=== PATIENT | male | born 1955 | race Caucasian/White ===

== ENCOUNTER 2021-06-13 10:43 | Inpatient (IN) | payer MEDICARE, OTHER ==
[~2021-06-13] VITALS: Ht 170.8 cm; Wt 88.6 kg
[2021-06-13] MEDS ORDERED: cefTRIAXone 1 GM PRE-MIX 50 ML IV STA (10:56)
[2021-06-13] MEDS ORDERED: methylPREDNISolone 125 MG (Solu-MEDROL) VIAL IM ONE (11:00)
[2021-06-13] MEDS ORDERED: RT-ALBUTEROL/IPRATROPIUM 3 ML (DUONEB) VIAL INH ONE (11:00)
[2021-06-13] MEDS ORDERED: NS IV 1000 ML 1,000 ML IV SCH ×2 (11:00→12:45)
--- NOTE | 2021-06-13 11:02 | ED Dyspnea ---
General Stated Complaint: SOB Source of Information: Patient Exam Limitations: No Limitations History of Present Illness Date Seen by Provider: Jun 13, 2021 Time Seen by Provider: 11:10 Initial Comments Patient is a 65-year-old male who presents ED with shortness of breath and cough. Symptoms started since first part of this month. Reports worsening coug h with clear sputum production. Shortness of breath. Patient oxygen level on arrival 89 to 90% on room air. Was placed on 2 L. Denies history of COPD. History of smoking. Denies history of CHF, coronary artery disease. Mild chest pressure with body aches and fatigue and weakness. Has received his Covid vaccine, influenza vaccine, and pneumococcal vaccine. Patient denies any vomiting or diarrhea. Denies of any abdominal pain, headache, dizziness, sore throat, ear pain or change in urination. [facility] is [facility] being [facility] Allergies and Home Medications Allergies Coded Allergies: No Known Drug Allergies (Unverified , 06/13/21) Patient Home Medication List Home Medication List Reviewed: Yes Alprazolam (Alprazolam) 0.5 Mg Tablet, 0.5 MG PO BID PRN for ANXIETY, (Reported) Entered as Reported by: EV ALVES on 06/13/211546 Last Action: Reviewed Multivit-Min/FA/Lycopene/Lut (Centrum Silver Tablet) 1 Each Tablet, 1 EACH PO DAILY, (Reported) Entered as Reported by: EV ALVES on 06/13/211546 Last Action: Reviewed Simvastatin (Simvastatin) 20 Mg Tablet, 10 MG PO HS, (Reported) Entered as Reported by: EV ALVES on 06/13/211546 Last Action: Reviewed Review of Systems Review of Systems Constitutional: chills, malaise, weakness EENTM: No ear discharge, No hearing loss, No ear pain, No eye pain Respiratory: cough, dyspnea on exertion, short of breath Cardiovascular: chest pain Gastrointestinal: No abdominal pain, No constipation, No diarrhea, No vomiting Genitourinary: No dysuria, No frequency Musculoskeletal: No back pain, No joint pain Skin: No change in color All Other Systems Reviewed Negative Unless Noted: Yes Physical Exam Vital Signs Vital Signs - First Documented 06/13/21 06/13/21 10:49 11:19 Temp 38.9 Pulse 125 Resp 20 B/P (MAP) 149/100 (116) Pulse Ox 88 O2 Delivery Room Air O2 Flow Rate 4.00 Capillary Refill : Height, Weight, BMI Height: '" Weight: lbs. oz. kg; BMI Method: General Appearance: No Apparent Distress, WD/WN HEENT: PERRL/EOMI, TMs Normal, Normal ENT Inspection, Pharynx Normal Neck: Full Range of Motion, Normal Inspection, Non Tender Respiratory: Chest Non Tender, Crackles, Wheezing Cardiovascular: No Edema, No Gallop, Tachycardia Gastrointestinal: Normal Bowel Sounds, No Organomegaly, No Pulsatile Mass, Non Tender, Soft Extremity: Normal Capillary Refill, Normal Inspection, Normal Range of Motion, Non Tender Neurologic/Psychiatric: Alert, Oriented x3, No Motor/Sensory Deficits, Normal Mood/Affect, pocketbook maker II-XII Norm as Tested Skin: Normal Color, Warm/Dry Focused Exam Lactate Level 06/13/21 11:02: Lactic Acid Level 2.17*H Lactic Acid Level Laboratory Tests Test 06/13/21 11:02 Lactic Acid Level 2.17 MMOL/L (0.50-2.00) *H Progress/Results/Core Measures Results/Orders Lab Results Laboratory Tests Test 06/13/21 11:02 06/13/21 11:03 06/13/21 12:29 Range/Units White Blood Count 20.1 H 4.3-11.0 10^3/uL Red Blood Count 5.00 4.30-5.52 10^6/uL Hemoglobin 14.4 13.3-17.7 g/dL Hematocrit 42 40-54 % Mean Corpuscular Volume 84 80-99 fL Mean Corpuscular Hemoglobin 29 25-34 pg Mean Corpuscular Hemoglobin Concent 34 32-36 g/dL Red Cell Distribution Width 12.7 10.0-14.5 % Platelet Count 704 H 130-400 10^3/uL Mean Platelet Volume 10.2 9.0-12.2 fL Immature Granulocyte % (Auto) 1 % Neutrophils (%) (Auto) 86 H 42-75 % Lymphocytes (%) (Auto) 7 L 12-44 % Monocytes (%) (Auto) 5 0-12 % Eosinophils (%) (Auto) 1 0-10 % Basophils (%) (Auto) 1 0-10 % Neutrophils # (Auto) 17.2 H 1.8-7.8 10^3/uL Lymphocytes # (Auto) 1.4 1.0-4.0 10^3/uL Monocytes # (Auto) 1.1 H 0.0-1.0 10^3/uL Eosinophils # (Auto) 0.2 0.0-0.3 10^3/uL Basophils # (Auto) 0.2 H 0.0-0.1 10^3/uL Immature Granulocyte # (Auto) 0.2 H 0.0-0.1 10^3/uL Neutrophils % (Manual) 84 % Lymphocytes % (Manual) 10 % Monocytes % (Manual) 3 % Eosinophils % (Manual) 0 % Basophils % (Manual) 0 % Band Neutrophils 3 % Blood Morphology Comment NORMAL Prothrombin Time 16.6 H 12.2-14.7 SEC INR Comment 1.3 0.8-1.4 Activated Partial Thromboplast Time 32 24-35 SEC Sodium Level 127 L 135-145 MMOL/L Potassium Level 3.2 L 3.6-5.0 MMOL/L Chloride Level 89 L 98-107 MMOL/L Carbon Dioxide Level 22 21-32 MMOL/L Anion Gap 16 H 5-14 MMOL/L Blood Urea Nitrogen 5 L 7-18 MG/DL Creatinine 0.68 0.60-1.30 MG/DL Estimat Glomerular Filtration Rate 117 BUN/Creatinine Ratio 7 Glucose Level 180 H 70-105 MG/DL Lactic Acid Level 2.17 *H 0.50-2.00 MMOL/L Calcium Level 9.0 8.5-10.1 MG/DL Corrected Calcium 9.7 8.5-10.1 MG/DL Total Bilirubin 0.8 0.1-1.0 MG/DL Aspartate Amino Transf (AST/SGOT) 45 H 5-34 U/L Alanine Aminotransferase (ALT/SGPT) 63 H 0-55 U/L Alkaline Phosphatase 122 40-136 U/L Troponin I < 0.028 <0.028 NG/ML B-Type Natriuretic Peptide 45.7 <100.0 PG/ML Total Protein 7.8 6.4-8.2 GM/DL Albumin 3.1 L 3.2-4.5 GM/DL Influenza Type A (RT-PCR) Not Detected Not Detecte Influenza Type B (RT-PCR) Not Detected Not Detecte SARS-CoV-2 RNA (RT-PCR) Not Detected Not Detecte Group A Streptococcus Screen NEGATIVE NEGATIVE My Orders Orders - JENNIFER CHRISTOPHER PA Cbc With Automated Diff (06/13/21 10:56) Comprehensive Metabolic Panel (06/13/21 10:56) Blood Culture (06/13/21 10:56) Protime With Inr (06/13/21 10:56) Partial Thromboplastin Time (06/13/21 10:56) Chest 1 View, Ap/Pa Only (06/13/21 10:56) Ed Iv/Invasive Line Start (06/13/21 10:56) Ekg Tracing (06/13/21 10:56) Troponin I (06/13/21 10:56) O2 (06/13/21 10:56) Lactic Acid Analyzer (06/13/21 10:56) Influenza A And B By Pcr (06/13/21 10:56) BNP (06/13/21 10:56) Methylprednisolone Sod Succ (Solu-Medrol (06/13/21 11:00) Albuterol/Ipra Inhalation Soln (Duoneb I (06/13/21 11:00) Svn Small Volume Nebulizer (06/13/21 10:56) Ceftriaxone 1 Gm Pre-Mix (Rocephin 1 Gm (06/13/21 10:56) Covid 19 Inhouse Test (06/13/21 10:56) Ns Iv 1000 Ml (Sodium Chloride 0.9%) (06/13/21 11:00) Manual Differential (06/13/21 11:02) Rapid Strep A Screen (06/13/21 12:08) Ua Culture If Indicated (06/13/21 12:08) Legionella Pneum Antigen Urine (06/13/21 12:08) Sputum Culture (06/13/21 12:08) Azithromycin Injection (Zithromax Inject (06/13/21 12:23) Ns Iv 1000 Ml (Sodium Chloride 0.9%) (06/13/21 12:45) Ns Iv 500 Ml (Sodium Chloride 0.9%) (06/13/21 12:45) Medications Given in ED Current Medications Medications Dose Ordered Sig/Beverley Route Start Time Stop Time Status Last Admin Dose Admin Albuterol/ Ipratropium 3 ml ONCE ONCE INH 06/13/21 11:00 06/13/21 11:02 DC 06/13/21 11:19 3 ML Methylprednisolone Sodium Succinate 125 mg ONCE ONCE IM 06/13/21 11:00 06/13/21 11:02 DC 06/13/21 11:33 125 MG Vital Signs/I&O 06/13/21 06/13/21 10:49 11:19 Temp 38.9 Pulse 125 Resp 20 B/P (MAP) 149/100 (116) Pulse Ox 88 91 O2 Delivery Room Air O2 Flow Rate 4.00 Initial ECG Impression Date: Jun 13, 2021 Initial ECG Impression Time: 11:12 Comment Sinus tachycardia, 123 bpm, QRS duration 93 MS, QTc 404 Ms. Departure Communication (Admissions) Time/Spoke to Admitting Phy: 12:35 Patient is a 65-year-old male who presents ED with a continuous cough or shortness of breath. History of smoking. Denies history of COPD, coronary artery disease, CHF. Patient was tachycardic and slightly hypoxic. Was placed on 4 L of oxygen with no respiratory distress. Chest x-ray concerning for atypical pneumonia. Covid and influenza negative. Leukocytosis noted. Slightly elevated lactic acid. Was given IV bolus 30ml/kg initiated here in the ED. Urinalysis pending at this time. Will check for Legionella. Strep is pending. Slightly dehydrated. Slightly hypokalemia. EKG sinus tachycardiac. Cardiac work-up unremarkable. Patient was given a breathing treatment with IV Solu-Medrol with improvement of oxygen level near 94 to 95%. Concerning for underlying COPD. Current every day smoker. Patient was discussed with Dr. Guerrier. Patient will be admitted for further evaluation. Patient is currently seeking treatment [facility]. Was recommended come to the hospital for further evaluation concerning for pneumonia. Impression Primary Impression: Severe sepsis Additional Impression: Pneumonia Disposition: ADMITTED INPATIENT Condition: Stable Admissions Decision to Admit Reason: Admit from ER (General) Decision to Admit/Date: Jun 13, 2021 Time/Decision to Admit Time: 12:36 Departure-Patient Inst. Referrals: [facility] MD (PCP/Family) Primary Care Physician JENNIFER CHRISTOPHER Jun 13, 2021 11:02
[2021-06-13 11:13] LABS: BASOPHILS # (AUTO) 0.2 10^3/uL (0.0-0.1); BASOPHILS % (AUTO) 1 % (0-10); EOSINOPHILS # (AUTO) 0.2 10^3/uL (0.0-0.3); EOSINOPHILS % (AUTO) 1 % (0-10); HEMATOCRIT 42 % (40-54); HEMOGLOBIN 14.4 g/dL (13.3-17.7); LYMPHOCYTES # (AUTO) 1.4 10^3/uL (1.0-4.0); LYMPHOCYTES % (AUTO) 7 % (12-44); MEAN CORPUSCULAR HEMOGLOBIN 29 pg (25-34); MEAN CORPUSCULAR HGB CONC 34 g/dL (32-36); MEAN CORPUSCULAR VOLUME 84 fL (80-99); MEAN PLATELET VOLUME 10.2 fL (9.0-12.2); MONOCYTES # (AUTO) 1.1 10^3/uL (0.0-1.0); MONOCYTES % (AUTO) 5 % (0-12); NEUTROPHILS # (AUTO) 17.2 10^3/uL (1.8-7.8); NEUTROPHILS % (AUTO) 86 % (42-75); PLATELET COUNT 704 10^3/uL (130-400); WHITE BLOOD COUNT 20.1 10^3/uL (4.3-11.0)
[2021-06-13 11:22] LABS: ALBUMIN 3.1 GM/DL (3.2-4.5); CHLORIDE 89 MMOL/L (98-107); POTASSIUM 3.2 MMOL/L (3.6-5.0); SODIUM 127 MMOL/L (135-145)
[2021-06-13 11:23] LABS: INR 1.3 (0.8-1.4); PROTHROMBIN TIME PATIENT 16.6 SEC (12.2-14.7)
[2021-06-13 11:25] LABS: GLUCOSE 180 MG/DL (70-105); TOTAL PROTEIN 7.8 GM/DL (6.4-8.2)
[2021-06-13 11:26] LABS: CARBON DIOXIDE 22 MMOL/L (21-32)
[2021-06-13 11:27] LABS: BILIRUBIN,TOTAL 0.8 MG/DL (0.1-1.0)
[2021-06-13 11:28] LABS: ALKALINE PHOSPHATASE 122 U/L (40-136); CREATININE SERUM 0.68 MG/DL (0.60-1.30); GFR ESTIMATED 117
[2021-06-13 11:30] LABS: BUN/CREATININE RATIO 7
[2021-06-13 11:31] LABS: ALANINE AMINOTRANSFERASE 63 U/L (0-55)
[2021-06-13 11:39] LABS: BAND NEUTROPHILS 3 %; BASOPHILS % (MANUAL) 0 %; EOSINOPHILS % (MANUAL) 0 %; LYMPHOCYTES % (MANUAL) 10 %; MONOCYTES % (MANUAL) 3 %; NEUTROPHILS % (MANUAL) 84 %; RBC MORPH NORMAL
--- NOTE | 2021-06-13 11:55 | Diagnostic Imaging Report ---
EXAMINATION: Chest 1 view HISTORY: sepsis COMPARISON: 04/03/2008 FINDINGS: Heart size and pulmonary vasculature are normal. There are patchy interstitial opacities seen throughout both lungs. No pleural effusion or pneumothorax. Degenerative changes of the thoracic spine. Osseous structures are otherwise intact. IMPRESSION: 1. Patchy interstitial opacities throughout both lungs which can be seen with atypical pneumonia or pulmonary edema. Dictated by: Dictated on workstation # [id number]
[2021-06-13] MEDS ORDERED: NS IV ONE ×2 (12:15→14:45)
[2021-06-13] MEDS ORDERED: AZITHROMYCIN INJECTION 500 MG in NS (IVPB) 250 ML IV STA (12:23)
[2021-06-13] MEDS ORDERED: NS IV 500 ML 500 ML IV SCH (12:45)
[2021-06-13 14:05] LABS: BILIRUBIN,URINE NEGATIVE (NEGATIVE); CLARITY,URINE CLEAR; COLOR,URINE YELLOW; GLUCOSE, URINE (UA) NEGATIVE (NEGATIVE); KETONES,URINE TRACE (NEGATIVE); LEUKOCYTE ESTERASE ,URINE NEGATIVE (NEGATIVE); NITRITE,URINE NEGATIVE (NEGATIVE); PROTEIN,URINE NEGATIVE (NEGATIVE)
[2021-06-13 14:15] LABS: BACTERIA,URINE NEGATIVE /HPF; RBC,URINE RARE /HPF
[2021-06-13 14:38] VITALS: BP 130/76
[2021-06-13] MEDS ORDERED: MELATONIN 3 MG TABLET PO PRN (14:45)
[2021-06-13] MEDS ORDERED: ONDANSETRON 4 MG (ZOFRAN) ORAL DISSOLVE TAB PO PRN (14:45)
[2021-06-13] MEDS ORDERED: ONDANSETRON 4 MG/2 ML (SDV) Z0FRAN IV PRN (14:45)
[2021-06-13] MEDS ORDERED: ACETAMINOPHEN 325 MG TABLET PO PRN (14:45)
[2021-06-13] MEDS ORDERED: diphenhydrAMINE 25 MG TAB (BENADRYL) PO PRN (14:45)
[2021-06-13] MEDS ORDERED: polyethylene glycoL POWDER 17 GM (MIRALAX) PACK PO PRN (14:45)
[2021-06-13] MEDS ORDERED: ALPRAZolam 1 MG (XANAX) TAB PO PRN (14:45)
[2021-06-13] MEDS ORDERED: ANTACID SUSP 30 ML UDC (MYLANTA) PO PRN (14:45)
[2021-06-13 14:48] VITALS: BP 130/76
[2021-06-13] MEDS ORDERED: CATHETER FLUSH 10 ML SYR IV PRN (15:00)
[2021-06-13] MEDS ORDERED: guaiFENesin/DM (ROBITUSSIN DM) 10 ML UDC PO PRN (15:00)
[2021-06-13] MEDS: ENOXAPARIN 40 MG/0.4 ML (LOVENOX) SYR SC SCH (15:20)
[2021-06-13] MEDS ORDERED: MULT-1029 PO (15:47)
[2021-06-13] MEDS ORDERED: ALPR0.5T7 PO (15:47)
[2021-06-13] MEDS ORDERED: SIMV20TA26 PO (15:47)
[2021-06-13 16:17] VITALS: BP 116/73
[2021-06-13] MEDS: LACTATED RINGERS 1,000 ML IV SCH ×2 (16:45→23:17)
[2021-06-13 20:05] VITALS: BP 122/73
[2021-06-13] MEDS: CATHETER FLUSH 10 ML SYR IV SCH (21:13)
[2021-06-13] MEDS: SENNOSIDES 8.6 MG (SENOKOT) TAB PO SCH (21:13)
[2021-06-13] MEDS: DOCUSATE SODIUM 100 MG (COLACE) CAP PO SCH (21:13)
--- NOTE | 2021-06-13 21:19 | History & Physical-Hospitalist ---
History of Present Illness HPI/Chief Complaint Charli Hall is a 65 year old male with PMH anxiety and HLD who presented with shortness of breath. He has been sick for almost a month. He reports having a URI which started to get better. He then started having subjective fevers and chills. He was short of breath. He had a cough productive of green sputum. He denies chest pain. He denies abdominal pain. He has not had nausea or vomiting. He denies diarrhea. He denies dysuria. He was due for his pneumonia vaccine recently but did not receive it. Source: patient Exam Limitations: no limitations Date Seen 06/13/21 Time Seen by a Provider: 14:40 Attending Physician Radha Larios MD PCP No,Local Physician Referring Physician Date of Admission Jun 13, 2021 at 12:34 Home Medications & Allergies Home Medications Reviewed patient Home Medication Reconciliation performed by pharmacy medication reconciliations sterile preparation technician and/or nursing. Patients Allergies have been reviewed. Allergies Allergies Coded Allergies No Known Drug Allergies (Bdvubtttbo94/29/21) Past Qsuqxbl-Heuifz-Dtsmro Hx Patient Social History Tobacco Use?: No Smoking Status: Former Smoker Use of E-Cig and/or Vaping dev: No Substance use?: No Alcohol Use?: Yes Alcohol type: Beer Alcohol Frequency: Daily Pt feels they are or have been: No Immunizations Up To Date Date of Influenza Vaccine: May 13, 2021 First/Initial COVID19 Vaccinat: SEPTEMBER Second COVID19 Vaccination Martín: OCTOBER Tetanus Booster (TDap): Unknown Hepatitis A: No Hepatitis B: No Current Status Advance Directives: Yes Advance Directive Location: Home Communicates: Verbally Primary Language: Ug[place]an Preferred Spoken Language: Ug[place]an Is interpretation needed?: No Implanted or Applied Medical D: None Past Medical History High Cholesterol Anxiety Family Medical History No Pertinent Family Hx Review of Systems Constitutional: chills, fever, malaise EENTM: no symptoms reported Respiratory: cough, phlegm, short of breath Cardiovascular: no symptoms reported Gastrointestinal: no symptoms reported Genitourinary: no symptoms reported Musculoskeletal: no symptoms reported Skin: no symptoms reported Psychiatric/Neurological: No Symptoms Reported Physical Exam Physical Exam Vital Signs Vital Signs - First Documented 06/13/21 06/13/21 10:49 11:19 Temp 38.9 Pulse 125 Resp 20 B/P (MAP) 149/100 (116) Pulse Ox 88 O2 Delivery Room Air O2 Flow Rate 4.00 Capillary Refill : Less Than 3 Seconds Height, Weight, BMI Height: '" Weight: lbs. oz. kg; 30.37 BMI Method: General Appearance: No Apparent Distress, Obese HEENT: PERRL/EOMI, Pharynx Normal Neck: Normal Inspection, Supple Respiratory: Lungs Clear, Normal Breath Sounds, No Respiratory Distress Cardiovascular: No Edema, No Murmur, Tachycardia Gastrointestinal: Normal Bowel Sounds, Non Tender, Soft Extremity: Normal Inspection, Non Tender, No Pedal Edema Neurologic/Psychiatric: Alert, Oriented x3, No Motor/Sensory Deficits, Normal Mood/Affect Skin: Normal Color, Warm/Dry Results Results/Procedures Labs Laboratory Tests 06/13/21 11:02 Patient resulted labs reviewed. Imaging: Reviewed Imaging Report Assessment/Plan Admission Diagnosis Severe sepsis due to pneumonia Admission Status: Inpatient Order (span 2 midnights) Reason for Inpatient Admission: IV antibiotics and fluids Assessment and Plan Severe sepsis Pneumonia Lactic acidosis Acute respiratory failure with hypoxia SIRS+ with leukocytosis and tachycardia CXR with pneumonia Lactic acid >2 Given IV fluid bolus Continue LR Started on Rocephin and Azithromycin Supplemental oxygen as needed HLD Anxiety Continue home meds Obesity Clinically significant, no acute management needs DVT prophylaxis: Lovenox Diagnosis/Problems Diagnosis/Problems (1) Severe sepsis Status: Acute (2) Pneumonia Status: Acute (3) Lactic acidosis Status: Acute (4) Acute respiratory failure with hypoxia Status: Acute (5) HLD (hyperlipidemia) Status: Chronic (6) Anxiety Status: Chronic (7) Obesity Status: Chronic RADHA LARIOS MD Jun 13, 2021 21:19
[2021-06-14] VITALS (7 sets, daily range): BP systolic 105–131; BP diastolic 66–78
[2021-06-14] MEDS: LACTATED RINGERS 1,000 ML IV SCH ×2 (00:45→10:36)
[2021-06-14 05:49] LABS: BASOPHILS % (AUTO) 0 % (0-10); EOSINOPHILS % (AUTO) 0 % (0-10); HEMATOCRIT 37 % (40-54); HEMOGLOBIN 12.1 g/dL (13.3-17.7); LYMPHOCYTES # (AUTO) 0.9 10^3/uL (1.0-4.0); LYMPHOCYTES % (AUTO) 7 % (12-44); MEAN CORPUSCULAR HEMOGLOBIN 29 pg (25-34); MEAN CORPUSCULAR HGB CONC 33 g/dL (32-36); MEAN CORPUSCULAR VOLUME 87 fL (80-99); MEAN PLATELET VOLUME 10.9 fL (9.0-12.2); MONOCYTES # (AUTO) 0.6 10^3/uL (0.0-1.0); MONOCYTES % (AUTO) 5 % (0-12); NEUTROPHILS % (AUTO) 87 % (42-75); PLATELET COUNT 483 10^3/uL (130-400); WHITE BLOOD COUNT 12.7 10^3/uL (4.3-11.0)
[2021-06-14] MEDS: CATHETER FLUSH 10 ML SYR IV SCH ×3 (06:09→20:51)
[2021-06-14 06:16] LABS: ALBUMIN 2.7 GM/DL (3.2-4.5); POTASSIUM 4.1 MMOL/L (3.6-5.0)
[2021-06-14 06:18] LABS: CALCIUM 8.6 MG/DL (8.5-10.1)
[2021-06-14 06:19] LABS: TOTAL PROTEIN 6.6 GM/DL (6.4-8.2)
[2021-06-14 06:21] LABS: BILIRUBIN,TOTAL 0.3 MG/DL (0.1-1.0)
[2021-06-14 06:22] LABS: CREATININE SERUM 0.58 MG/DL (0.60-1.30)
[2021-06-14 06:25] LABS: MAGNESIUM 2.3 MG/DL (1.6-2.4)
[2021-06-14] MEDS: DOCUSATE SODIUM 100 MG (COLACE) CAP PO SCH ×2 (09:00→20:50)
[2021-06-14] MEDS: SENNOSIDES 8.6 MG (SENOKOT) TAB PO SCH ×2 (09:00→20:51)
--- NOTE | 2021-06-14 12:15 | Progress Note - Hospitalist ---
Subjective HPI/CC On Admission Date Seen by Provider: Jun 14, 2021 Time Seen by Provider: 11:05 Charli Hall is a 65 year old male with PMH anxiety and HLD who presented with shortness of breath. He has been sick for almost a month. He reports having a URI which started to get better. He then started having subjective fevers and c hills. He was short of breath. He had a cough productive of green sputum. He denies chest pain. He denies abdominal pain. He has not had nausea or vomiting. He denies diarrhea. He denies dysuria. He was due for his pneumonia vaccine recently but did not receive it. Subjective/Events-last exam He is feeling better today. He is not short of breath. He is still coughing up phlegm. He is eating and drinking. He has been up and moving. Focused Exam Lactate Level 06/13/21 11:02: Lactic Acid Level 2.17*H 06/13/21 13:22: Lactic Acid Level 1.17 Objective Exam Vital Signs Vital Signs Date Time Temp Pulse Resp B/P (MAP) Pulse Ox O2 Delivery O2 Flow Rate FiO2 06/14/21 12:00 36.9 99 22 122/77 (92) 91 Room Air 06/14/21 07:45 2.00 Capillary Refill : Less Than 3 Seconds General Appearance: No Apparent Distress, Obese Respiratory: No Respiratory Distress, Wheezing Cardiovascular: Regular Rate, Rhythm, No Edema, No Murmur Gastrointestinal: Normal Bowel Sounds, Non Tender, Soft Extremity: Normal Inspection, Non Tender, No Pedal Edema Neurologic/Psychiatric: Alert, Oriented x3, No Motor/Sensory Deficits, Normal Mood/Affect Skin: Normal Color, Warm/Dry Results/Procedures Lab Laboratory Tests 06/14/21 05:24 Patient resulted labs reviewed. Imaging: Reviewed Imaging Report Assessment/Plan Assessment and Plan Assess & Plan/Chief Complaint Pneumonia Continue Rocephin and Azithromycin Stop fluids Supplemental oxygen as needed HLD Anxiety Continue home meds Obesity Clinically significant, no acute management needs DVT prophylaxis: Lovenox Severe sepsis, resolved Lactic acidosis, resolved Acute respiratory failure with hypoxia, resolved Hyponatremia, resolved Hypokalemia, resolved Diagnosis/Problems Diagnosis/Problems (1) Severe sepsis Status: Acute (2) Pneumonia Status: Acute (3) Lactic acidosis Status: Acute (4) Acute respiratory failure with hypoxia Status: Acute (5) HLD (hyperlipidemia) Status: Chronic (6) Anxiety Status: Chronic (7) Obesity Status: Chronic ZACH LARIOS MD Jun 14, 2021 12:15
[2021-06-14] MEDS: ENOXAPARIN 40 MG/0.4 ML (LOVENOX) SYR SC SCH (15:56)
[2021-06-15] VITALS: BP 147/71
[2021-06-15 04:04] VITALS: BP 146/80
[2021-06-15] MEDS: DOCUSATE SODIUM 100 MG (COLACE) CAP PO SCH (05:31)
[2021-06-15] MEDS: SENNOSIDES 8.6 MG (SENOKOT) TAB PO SCH (05:31)
[2021-06-15] MEDS: CATHETER FLUSH 10 ML SYR IV SCH (05:31)
[2021-06-15 05:56] LABS: BASOPHILS # (AUTO) 0.1 10^3/uL (0.0-0.1); BASOPHILS % (AUTO) 1 % (0-10); EOSINOPHILS # (AUTO) 0.2 10^3/uL (0.0-0.3); EOSINOPHILS % (AUTO) 2 % (0-10); HEMATOCRIT 37 % (40-54); HEMOGLOBIN 12.2 g/dL (13.3-17.7); LYMPHOCYTES % (AUTO) 16 % (12-44); MEAN CORPUSCULAR HEMOGLOBIN 28 pg (25-34); MEAN CORPUSCULAR HGB CONC 33 g/dL (32-36); MEAN CORPUSCULAR VOLUME 86 fL (80-99); MEAN PLATELET VOLUME 10.5 fL (9.0-12.2); MONOCYTES # (AUTO) 1.1 10^3/uL (0.0-1.0); MONOCYTES % (AUTO) 8 % (0-12); NEUTROPHILS # (AUTO) 9.6 10^3/uL (1.8-7.8); NEUTROPHILS % (AUTO) 73 % (42-75); PLATELET COUNT 570 10^3/uL (130-400); WHITE BLOOD COUNT 13.1 10^3/uL (4.3-11.0)
[2021-06-15 06:14] LABS: ALBUMIN 2.7 GM/DL (3.2-4.5)
[2021-06-15 06:15] LABS: POTASSIUM 3.5 MMOL/L (3.6-5.0)
[2021-06-15 06:16] LABS: CALCIUM 8.4 MG/DL (8.5-10.1)
[2021-06-15 06:17] LABS: TOTAL PROTEIN 6.3 GM/DL (6.4-8.2)
[2021-06-15 06:19] LABS: BILIRUBIN,TOTAL 0.4 MG/DL (0.1-1.0)
[2021-06-15 06:21] LABS: CREATININE SERUM 0.59 MG/DL (0.60-1.30)
[2021-06-15 08:00] VITALS: BP 137/81
[2021-06-15] MEDS ORDERED: CEFD300C3 PO (10:57)
[2021-06-15 12:00] VITALS: BP 151/67
[2021-06-15 12:58] VITALS: BP 151/67
== END 2021-06-15 13:19 | disposition home or self-care (01) | DRG 871 ==
LOC: EDUNIT# 10:43 → ER 10:45 → 4TH 12:34
PROVIDERS: ADMIT Internal Medicine; ATTEND Internal Medicine
DX: A41.9 Sepsis, unspecified organism (principal); J18.9 Pneumonia, unspecified organism; J96.01 Acute respiratory failure with hypoxia; R65.20 Severe sepsis without septic shock; E78.5 Hyperlipidemia, unspecified; F41.9 Anxiety disorder, unspecified; E66.9 Obesity, unspecified; E87.6 Hypokalemia; E78.00 Pure hypercholesterolemia, unspecified; Z68.30 Body mass index [BMI] 30.0-30.9, adult; Z87.891 Personal history of nicotine dependence; Z79.899 Other long term (current) drug therapy; Z20.822 Contact with and (suspected) exposure to COVID-19
CPT/HCPCS: 36415; 71045; 80053; 81000; 83605; 83735; 83880; 84145; 84484; 85007; 85025; 85027; 85610; 85730; 87040; 87430; 87449; 87636; 93005; 94640; 94760; 94761

== ENCOUNTER → 2021-09-06 | Outpatient (CLI) | payer OTHER ==
[~2021-09-06] MED LIST: ALPR0.5T7 PO; CEFD300C3 PO; MULT-1029 PO; SIMV20TA26 PO
[2021-09-06] MEDS: CATHETER FLUSH 10 ML SYR IV PRN ×2 (11:54→11:57)
--- NOTE | 2021-09-06 13:19 | Diagnostic Imaging Report ---
PROCEDURE: CT abdomen and pelvis without contrast. TECHNIQUE: Multiple contiguous axial images were obtained through the abdomen and pelvis without the use of intravenous contrast. Auto Exposure Controls were utilized during the CT exam to meet ALARA standards for radiation dose reduction. INDICATION: Prostate cancer. COMPARISON: I have no priors. FINDINGS: The prostate is not pathologically enlarged. The pelvic sidewalls and ileo-inguinal lymph node chains appear unremarkable. There is no abdominal periaortic or retroperitoneal lymphadenopathy. No mesenteric mass. Lung bases are nonacute. There are degenerative changes to the vertebral discs, endplates, and facets but no suspicious lytic or sclerotic bone lesion. No fracture. There is no ascites. No omental infiltration. There is no bowel, biliary, or urinary tract obstruction. The unopacified liver is nonfocal. The spleen, adrenals, and pancreas are unremarkable. The gallbladder and bile ducts are within normal limits. The unobstructed kidneys appear unremarkable. The aorta is atherosclerotic but normal in caliber. IMPRESSION: No findings of metastatic disease. No acute appearing abnormality. Dictated by: Dictated on workstation # [id number]
--- NOTE | 2021-09-06 18:32 | Diagnostic Imaging Report ---
INDICATION: Prostate carcinoma. TECHNIQUE: The patient was administered 25.6 mCi technetium 99m MDP intravenously and whole-body imaging was performed after a three-hour delay. COMPARISON: No prior bone scans are available for comparison. There is normal uptake of activity by the axial and appendicular skeleton. There is uptake by both kidneys with excretion into the urinary bladder. No suspicious uptake is identified to suggest osseous metastatic disease. IMPRESSION: No scintigraphic evidence of osseous metastatic disease. Dictated by: Dictated on workstation # [id number]
== END ==
LOC: CARD 12:00
PROVIDERS: ATTEND Urology
DX: C61 Malignant neoplasm of prostate (principal)
CPT/HCPCS: 74176; 78306

== ENCOUNTER 2021-10-31 08:47 | Outpatient (RCR) | payer OTHER | END 2021-11-12 | disposition home or self-care (01) | LOC: ONC 08:47 | PROVIDERS: ATTEND Radiology Radiation Oncology | DX: C61 Malignant neoplasm of prostate (principal); J43.9 Emphysema, unspecified; I10 Essential (primary) hypertension; E78.00 Pure hypercholesterolemia, unspecified; F41.9 Anxiety disorder, unspecified; Z87.891 Personal history of nicotine dependence; Z79.899 Other long term (current) drug therapy; Z79.82 Long term (current) use of aspirin | CPT/HCPCS: 76873; 84153; 99204 ==

== ENCOUNTER 2021-11-23 05:28 | Outpatient (CLI) | payer OTHER ==
[~2021-11-23] VITALS: Ht 177.8 cm; Wt 80.5 kg
[2021-11-23] MEDS ORDERED: ASPI-999 PO (12:59)
[2021-11-23] MEDS ORDERED: FLUT12AE6 IH (12:59)
[2021-11-23] MEDS ORDERED: FURO40TA4 PO (12:59)
[2021-11-23] MEDS ORDERED: ALBUTEROL INHALER (13:18)
== END 2021-11-23 13:24 | disposition home or self-care (01) ==
LOC: PREOP 05:28
PROVIDERS: ATTEND Urology
DX: Z01.818 Encounter for other preprocedural examination (principal)

== ENCOUNTER 2021-11-30 06:20 | Day surgery (SDC) | payer OTHER ==
[~2021-11-30] VITALS: Ht 177.8 cm; Wt 80.5 kg
[2021-11-30] VITALS (10 sets, daily range): BP systolic 107–139; BP diastolic 72–87
[~2021-11-30 06:20] MED LIST changes: +ALBUTEROL INHALER; +ASPI-999 PO; +FLUT12AE6 IH; +FURO40TA4 PO
--- NOTE | 2021-11-30 07:09 | Progress Note-Pre Operative ---
Pre-Operative Progress Note H&P Reviewed The H&P was reviewed, patient examined and no changes noted. Date Seen by Provider: November 30, 2021 Time Seen by Provider: 07:09 Date H&P Reviewed: November 30, 2021 Time H&P Reviewed: 07:09 Pre-Operative Diagnosis: CA PROSTATE GAY SNELL MD November 30, 2021 07:09
--- NOTE | 2021-11-30 07:18 | Progress Note-Post Operative ---
Post-Operative Progess Note Surgeon (s)/Hat Cleaner (s) Surgeon THERON FRIED MD, GAY SNELL MD Hat Cleaner: NONE Pre-Operative Diagnosis CA PROSTATE Post-Operative Diagnosis CA PROSTATE Procedure & Operative Findings Date of Procedure 11/30/21 Procedure Performed/Findings BRACHYTHERAPY, CYSTOGRAM, AND SPACE OAR Anesthesia Type GENERAL Estimated Blood Loss Estimated blood loss (mL): NEGLIGIBLE Specimens/Packing Specimens Removed NONE Packing: NONE GAY SNELL MD November 30, 2021 07:18
--- NOTE | 2021-11-30 07:21 | Discharge Inst-Urology ---
Discharge Inst-Urology Reconcile Patient Problems Problems Reviewed?: Yes Final Diagnosis CA PROSTATE Patient Instructions/Follow Up Plan/Assessment/Instructions Discharge with laird and leg bag day time and large bag night time with instructions Come to office sunday 9am to DC Laird, rest till then Please make appointment to been seen in office in 4 weeks. Resume ASA in 72 hours if no bleeding, hold if starts bleeding Increase oral fluids for 48 hours and then as needed. Diet as tolerated. If questions or concerns contact your physician Or seek help at emergency department. GAY SNELL MD November 30, 2021 07:21
[2021-11-30] MEDS: LACTATED RINGERS 1,000 ML IV PRN ×2 (07:32→09:36)
[2021-11-30] MEDS ORDERED: BACITRACIN OINTMENT 28 GM TUBE ONE (08:12)
[2021-11-30] MEDS ORDERED: proPOfol 200 MG/20 ML (DIPRIVAN) VIAL IV ONE (08:37)
[2021-11-30] MEDS ORDERED: ONDANSETRON 4 MG/2 ML (SDV) Z0FRAN ONE (08:37)
[2021-11-30] MEDS ORDERED: LIDOCAINE PF 2% 5 ML (XYLOCAINE) VIAL ONE (08:37)
[2021-11-30] MEDS ORDERED: MIDAZOLAM 2 MG/2 ML (VERSED) VIAL ONE (08:37)
[2021-11-30] MEDS ORDERED: fentaNYL INJ 100 MCG/2 ML AMP ONE (08:37)
[2021-11-30] MEDS ORDERED: KETO10TA PO ×2 (08:55→08:56)
[2021-11-30] MEDS ORDERED: PHEN-640 PO (08:56)
[2021-11-30] MEDS ORDERED: CIPR-225 PO (08:56)
[2021-11-30] MEDS ORDERED: SEVOFLURANE (ULTANE) 15 ML INHAL SOLN ONE (09:52)
[2021-11-30] MEDS ORDERED: morphine INJ 10 MG/ML 1ML (SYR OR VIAL) IVP ONE (10:15)
[2021-11-30] MEDS ORDERED: ONDANSETRON 4 MG/2 ML (SDV) Z0FRAN IVP PRN (10:15)
--- NOTE | 2021-11-30 10:28 | Anesthesia-General Post-Op ---
General Patient Condition Mental Status/LOC: Same as Preop Cardiovascular: Satisfactory Nausea/Vomiting: Absent Respiratory: Satisfactory Pain: Controlled Complications: Absent Post Op Complications Complications None Follow Up Care/Instructions Patient Instructions None needed. Anesthesia/Patient Condition Patient Condition Patient is doing well in PACU, no complaints, stable vital signs, no apparent adverse anesthesia problems. MITESH STALLWORTH DO November 30, 2021 10:28
--- NOTE | 2021-11-30 12:23 | Diagnostic Imaging Report ---
INDICATION: Prostate carcinoma. TECHNIQUE: Single intraprocedural images lower midline pelvis FINDINGS/ IMPRESSION: The hospital radiology department provided fluoroscopic imaging in support of an interventional procedure. A radiologist was not present. Please reference the operating provider's procedure note. Fluoroscopy Time: 18.3 seconds Dictated by: Dictated on workstation # [id number]
== END 2021-11-30 13:13 ==
LOC: SDC 06:20
PROVIDERS: ATTEND Urology
DX: C61 Malignant neoplasm of prostate (principal); Z87.891 Personal history of nicotine dependence
CPT/HCPCS: 76000; 76965; 77290; 77332; 77370; 77470; 77778; 87081

== ENCOUNTER 2021-12-28 09:19 | Outpatient (RCR) | payer OTHER ==
[~2021-12-28 09:19] MED LIST changes: +CIPR-225 PO; +KETO10TA PO; +PHEN-640 PO
== END 2022-01-12 | disposition home or self-care (01) ==
LOC: ONC 09:19
PROVIDERS: ATTEND Radiology Radiation Oncology
DX: Z51.0 Encounter for antineoplastic radiation therapy (principal); C61 Malignant neoplasm of prostate; J43.9 Emphysema, unspecified; I10 Essential (primary) hypertension; E78.00 Pure hypercholesterolemia, unspecified; F41.9 Anxiety disorder, unspecified; Z87.891 Personal history of nicotine dependence; Z79.899 Other long term (current) drug therapy; Z79.82 Long term (current) use of aspirin
CPT/HCPCS: 77290

== ENCOUNTER → 2022-01-12 | Outpatient (RCR) | payer OTHER | END | disposition home or self-care (01) | LOC: ONC 01:10 | PROVIDERS: ATTEND Radiology Radiation Oncology | DX: Z51.0 Encounter for antineoplastic radiation therapy (principal); C61 Malignant neoplasm of prostate; J43.9 Emphysema, unspecified; I10 Essential (primary) hypertension; E78.00 Pure hypercholesterolemia, unspecified; F41.9 Anxiety disorder, unspecified; Z87.891 Personal history of nicotine dependence; Z79.899 Other long term (current) drug therapy; Z79.82 Long term (current) use of aspirin | CPT/HCPCS: 77295 ==

== ENCOUNTER 2022-01-18 08:59 | Outpatient (RCR) | payer OTHER | END 2022-01-27 10:54 | disposition home or self-care (01) | LOC: ONC 08:59 | PROVIDERS: ATTEND Radiology Radiation Oncology | DX: C61 Malignant neoplasm of prostate (principal) | CPT/HCPCS: 77334 ==

== ENCOUNTER 2022-02-10 14:12 | Outpatient (RCR) | payer OTHER | END 2022-02-12 | disposition home or self-care (01) | LOC: ONC 14:12 | PROVIDERS: ATTEND Radiology Radiation Oncology | DX: Z51.0 Encounter for antineoplastic radiation therapy (principal); C61 Malignant neoplasm of prostate; J43.9 Emphysema, unspecified; I10 Essential (primary) hypertension; E78.00 Pure hypercholesterolemia, unspecified; F41.9 Anxiety disorder, unspecified; Z87.891 Personal history of nicotine dependence; Z79.82 Long term (current) use of aspirin; Z79.899 Other long term (current) drug therapy | CPT/HCPCS: 77300; 77301; 77336; 77338; 77385; 77470 ==

== ENCOUNTER 2022-03-03 13:50 | Outpatient (RCR) | payer OTHER | END 2022-03-15 | disposition home or self-care (01) | LOC: ONC 13:50 | PROVIDERS: ATTEND Radiology Radiation Oncology | DX: Z51.0 Encounter for antineoplastic radiation therapy (principal); C61 Malignant neoplasm of prostate | CPT/HCPCS: 77336; 77385 ==

== ENCOUNTER 2022-05-04 08:28 | Outpatient (RCR) | payer OTHER | END 2022-05-15 | disposition home or self-care (01) | LOC: ONC 08:28 | PROVIDERS: ATTEND Radiology Radiation Oncology | DX: C61 Malignant neoplasm of prostate (principal) | CPT/HCPCS: 99213 ==

== ENCOUNTER → 2022-07-24 | Outpatient (CLI) | payer OTHER ==
[~2022-07-24] MED LIST changes: +RT-ALBUTEROL SULF 2.5 MG/3 ML PRE-MIX VIAL INH ONE
== END ==
LOC: RT 12:44
PROVIDERS: ATTEND Internal Medicine Critical Care Medicine
DX: J44.9 Chronic obstructive pulmonary disease, unspecified (principal)
CPT/HCPCS: 94060; 94621; 94726; 94729

== ENCOUNTER → 2023-02-23 | Outpatient (CLI) | payer OTHER ==
[~2023-02-23] MED LIST changes: -RT-ALBUTEROL SULF 2.5 MG/3 ML PRE-MIX VIAL INH ONE
== END ==
LOC: LAB FS 11:37
PROVIDERS: ATTEND Urology
DX: C61 Malignant neoplasm of prostate (principal)
CPT/HCPCS: 36415; 84153

== ENCOUNTER → 2023-05-30 | Outpatient (CLI) | payer OTHER ==
--- NOTE | 2023-05-30 16:42 | Diagnostic Imaging Report ---
Time of study: 05/30/2023 4:04 PM CLINICAL HISTORY: Abdominal aortic aneurysm screening. COMPARISON: 09/06/2021 TECHNIQUE: Limited abdominal sonogram was performed to evaluate the abdominal aorta. FINDINGS: The abdominal aorta is normal in course and caliber. There is no evidence of aneurysm. The axial dimensions of the abdominal aorta are: Proximal: 2.2 x 2.2 cm. Mid: 1.5 x 1.4 cm. Distal: 1.5 x 1.8 cm. The right common iliac artery measures 1.0 cm in diameter. The left common iliac artery measures 1.0 cm. No large retroperitoneal masses or fluid collections are seen. IMPRESSION: 1. Unremarkable abdominal aorta. No evidence of stenosis of aneurysm. 2. No large retroperitoneal masses or fluid collections. Dictated by: Dictated on workstation # [id number]
== END ==
LOC: RAD 10:45
PROVIDERS: ATTEND Hospitalist
DX: I71.40 Abdominal aortic aneurysm, without rupture, unspecified (principal)
CPT/HCPCS: 76775